=== PATIENT | female | born 1965 | race African-American/Black ===

== ENCOUNTER 2016-10-26 12:33 | Emergency (ER) | payer OTHER ==
[~2016-10-26] VITALS: Ht 170.2 cm; Wt 80.0 kg
[~2016-10-26 12:33] MED LIST: ASPI1TAB7 PO; FAMO-136 PO
[2016-10-26 17:32] LABS: BASOPHILS % (AUTO) 0.5 % (0.0-2.0); EOSINOPHILS % (AUTO) 3.8 % (1.0-6.0); HEMATOCRIT 38.2 % (36-46); HEMOGLOBIN 12.6 g/dL (12.0-16.0); LYMPHOCYTES # (AUTO) 3.1 K/uL (1.0-4.8); LYMPHOCYTES % (AUTO) 34.9 % (22.0-44.0); MEAN CORPUSCULAR HGB CONC 33.1 G/dL (31.0-37.0); MEAN CORPUSCULAR VOLUME 91 fL (80-100); MONOCYTES # (AUTO) 0.5 K/uL (0.1-1.0); MONOCYTES % (AUTO) 6.1 % (2.0-9.0); NEUTROPHILS # (AUTO) 4.9 K/uL (1.8-7.7); NEUTROPHILS % (AUTO) 54.7 % (40.0-70.0); PLATELET COUNT (AUTO) 324 K/uL (150-450); RED BLOOD CELL COUNT(AUTO) 4.21 MIL/uL (4.00-5.20); RED CELL DISTRIBUTION WIDTH 12.2 % (11.5-14.5); WHITE BLOOD COUNT (AUTO) 8.9 K/uL (4.5-11.0)
[2016-10-26 17:51] LABS: ANION GAP 6 mmol/L (8-16); CALCIUM, TOTAL 8.9 mg/dL (8.8-10.5); CARBON DIOXIDE 30 mmol/L (22-29); CHLORIDE 104 mmol/L (98-107); GLOMERULAR FILTR. RATE CALC > 60 mL/min (>60); POTASSIUM 4.3 mmol/L (3.5-5.1); SODIUM SERUM 140 mmol/L (136-145); UREA NITROGEN, BLOOD 15 mg/dL (7-18)
[2016-10-26 17:56] LABS: ALANINE AMINOTRANSFERASE 28 U/L (12-78); ALBUMIN 3.8 g/dL (3.4-5.0); ASPARTATE AMINOTRANSFERASE 15 U/L (15-37); BILIRUBIN,TOTAL 0.3 mg/dL (0.1-1.0); TOTAL PROTEIN, SERUM 7.2 g/dL (6.4-8.2)
[2016-10-26 18:03] VITALS: BP 137/82
== END 2016-10-26 18:15 | disposition left against medical advice (07) ==
LOC: EMS 12:35
DX: R42 Dizziness and giddiness (principal); R20.0 Anesthesia of skin; F17.200 Nicotine dependence, unspecified, uncomplicated
CPT/HCPCS: 93005; 99285

== ENCOUNTER 2017-03-17 17:18 | Emergency (ER) | payer OTHER ==
[~2017-03-17] VITALS: Ht 165.1 cm; Wt 68.1 kg
[2017-03-17] MEDS ORDERED: TRAM50TA4 PO (17:33)
[2017-03-17 18:44] VITALS: BP 132/84
[2017-03-17] MEDS ORDERED: IBUPROFEN 800 MG TABLET PO ONE (18:45)
[2017-03-17] MEDS ORDERED: PERTUSS(ACELL),DIPH,TET VAC/PF 0.5 ML VIAL IM ONE (18:45)
== END 2017-03-17 19:36 | disposition home or self-care (01) ==
LOC: EMS 17:27
DX: S61.431A Puncture wound without foreign body of right hand, initial encounter (principal); K21.9 Gastro-esophageal reflux disease without esophagitis; G43.909 Migraine, unspecified, not intractable, without status migrainosus; F17.210 Nicotine dependence, cigarettes, uncomplicated; W54.0XXA Bitten by dog, initial encounter; Y93.89 Activity, other specified; Y92.89 Other specified places as the place of occurrence of the external cause; Y99.8 Other external cause status
CPT/HCPCS: 90471; 90715; 99284

== ENCOUNTER 2017-07-27 13:18 | Emergency (ER) | payer OTHER ==
[~2017-07-27] VITALS: Ht 160 cm; Wt 71.0 kg
[~2017-07-27 13:18] MED LIST changes: +TRAM50TA4 PO
[2017-07-27] MEDS ORDERED: IBUPROFEN 800 MG TABLET PO ONE (14:00)
[2017-07-27 15:01] VITALS: BP 130/94
== END 2017-07-27 15:45 | disposition home or self-care (01) ==
LOC: EMS 13:19
DX: S50.11XA Contusion of right forearm, initial encounter (principal); S60.052A Contusion of left little finger without damage to nail, initial encounter; R03.0 Elevated blood-pressure reading, without diagnosis of hypertension; K21.9 Gastro-esophageal reflux disease without esophagitis; G43.909 Migraine, unspecified, not intractable, without status migrainosus; F17.210 Nicotine dependence, cigarettes, uncomplicated; W19.XXXA Unspecified fall, initial encounter; Y93.89 Activity, other specified; Y92.89 Other specified places as the place of occurrence of the external cause; Y99.8 Other external cause status
CPT/HCPCS: 99284

== ENCOUNTER 2017-09-07 16:19 | Emergency (ER) | payer OTHER ==
[~2017-09-07] VITALS: Ht 165.1 cm; Wt 56.8 kg
[2017-09-07 16:30] VITALS: BP 0/0
== END 2017-09-07 16:37 | disposition left against medical advice (07) ==
LOC: EMS 16:20
DX: R10.9 Unspecified abdominal pain (principal); Z53.21 Procedure and treatment not carried out due to patient leaving prior to being seen by health care provider

== ENCOUNTER 2017-09-09 07:42 | Emergency (ER) | payer OTHER ==
[~2017-09-09] VITALS: Ht 165.1 cm; Wt 63.5 kg
[2017-09-09 11:28] VITALS: BP 122/95
== END 2017-09-09 11:47 | disposition home or self-care (01) ==
LOC: EMS 07:43
DX: S63.501A Unspecified sprain of right wrist, initial encounter (principal); S16.1XXA Strain of muscle, fascia and tendon at neck level, initial encounter; S30.1XXA Contusion of abdominal wall, initial encounter; K21.9 Gastro-esophageal reflux disease without esophagitis; F17.200 Nicotine dependence, unspecified, uncomplicated; W01.0XXA Fall on same level from slipping, tripping and stumbling without subsequent striking against object, initial encounter; Y93.89 Activity, other specified; Y92.89 Other specified places as the place of occurrence of the external cause; Y99.8 Other external cause status
CPT/HCPCS: 99283

== ENCOUNTER 2017-11-22 11:46 | Emergency (ER) | payer OTHER ==
[~2017-11-22] VITALS: Ht 165.1 cm; Wt 68.2 kg
[~2017-11-22 11:46] MED LIST changes: -FAMO-136 PO
[2017-11-22] MEDS ORDERED: PROPARACAINE/FLUORESCEIN SOD 0.5-0.25% 0.5 ML OPHTHALMIC SOLUTION OU ONE (12:30)
[2017-11-22 13:30] VITALS: BP 135/68
== END 2017-11-22 13:37 | disposition home or self-care (01) ==
LOC: EMS 11:47
DX: H53.8 Other visual disturbances (principal); M54.2 Cervicalgia; K21.9 Gastro-esophageal reflux disease without esophagitis; G43.909 Migraine, unspecified, not intractable, without status migrainosus; F17.210 Nicotine dependence, cigarettes, uncomplicated
CPT/HCPCS: 99283; Z7610

== ENCOUNTER 2018-11-15 00:08 | Emergency (ER) | payer SELFPAY ==
[~2018-11-15] VITALS: Ht 165.1 cm; Wt 68.6 kg
[2018-11-15] MEDS ORDERED: KETOROLAC TROMETHAMINE 60 MG/2 ML VIAL IM ONE (02:30)
[2018-11-15] MEDS ORDERED: CARISOPRODOL 350 MG TABLET PO ONE (02:30)
[2018-11-15 04:50] VITALS: BP 118/73
== END 2018-11-15 04:59 | disposition home or self-care (01) ==
LOC: EMS 00:09
DX: S13.4XXA Sprain of ligaments of cervical spine, initial encounter (principal); S60.211A Contusion of right wrist, initial encounter; M54.5 Low back pain; K21.9 Gastro-esophageal reflux disease without esophagitis; F17.210 Nicotine dependence, cigarettes, uncomplicated; V43.62XA Car passenger injured in collision with other type car in traffic accident, initial encounter; Y93.89 Activity, other specified; Y92.89 Other specified places as the place of occurrence of the external cause; Y99.8 Other external cause status
CPT/HCPCS: 72040; 72100; 96372; 99283; J1885

== ENCOUNTER 2018-12-14 15:05 | Inpatient (IN) | payer OTHER ==
[~2018-12-14] VITALS: Ht 162.6 cm; Wt 77.3 kg
[~2018-12-14 15:05] MED LIST changes: -TRAM50TA4 PO
[2018-12-14] MEDS ORDERED: MORPHINE SULFATE 4 MG/ML SYRINGE IVP ONE ×2 (15:45→17:30)
[2018-12-14] MEDS ORDERED: ONDANSETRON HCL 4 MG/2 ML VIAL IVP ONE (15:45)
[2018-12-14 16:11] LABS: BILIRUBIN,URINE NEGATIVE (NEGATIVE); GLUCOSE, URINE (UA) 100 mg/dL (NEGATIVE); KETONES,URINE NEGATIVE (NEGATIVE); NITRATE,URINE NEGATIVE (NEGATIVE); PH,URINE 5.5 (5.0-8.0); PROTEIN,URINE NEGATIVE (NEGATIVE)
[2018-12-14 16:33] LABS: EOSINOPHILS % (AUTO) 1.2 % (1.0-6.0); HEMATOCRIT 29.1 % (36-46); HEMOGLOBIN 9.8 g/dL (12.0-16.0); LYMPHOCYTES # (AUTO) 2.4 K/uL (1.0-4.8); MEAN CORPUSCULAR HGB CONC 33.8 G/dL (31.0-37.0); MEAN CORPUSCULAR VOLUME 89 fL (80-100); MONOCYTES # (AUTO) 0.5 K/uL (0.1-1.0); MONOCYTES % (AUTO) 3.9 % (2.0-9.0); NEUTROPHILS % (AUTO) 75.9 % (40.0-70.0); PLATELET COUNT (AUTO) 317 K/uL (150-450); RED BLOOD CELL COUNT(AUTO) 3.27 MIL/uL (4.00-5.20); RED CELL DISTRIBUTION WIDTH 13.1 % (11.5-14.5)
[2018-12-14 16:36] LABS: APPEARANCE,URINE HAZY (CLEAR); LEUKOCYTE ESTERASE ,URINE SMALL (NEGATIVE); OCCULT BLOOD,URINE TRACE (NEGATIVE)
[2018-12-14 16:37] LABS: BACTERIA,URINE None Seen /HPF (None Seen); RBC,URINE 0-2 /HPF (0-2); SQUAMOUS EPITHELIAL CELL,UR Few /LPF (None Seen)
[2018-12-14 16:37] LABS: ANION GAP 10 mmol/L (8-16); CALCIUM, TOTAL 9.2 mg/dL (8.8-10.5); CARBON DIOXIDE 26 mmol/L (22-29); CHLORIDE 105 mmol/L (98-107); CREATININE 0.75 mg/dL (0.60-1.30); GLOMERULAR FILTR. RATE CALC > 60 mL/min (>60); GLUCOSE,RANDOM 102 mg/dL (70-110); POTASSIUM 3.7 mmol/L (3.5-5.1); SODIUM SERUM 141 mmol/L (136-145); UREA NITROGEN, BLOOD 11 mg/dL (7-18)
[2018-12-14 16:43] LABS: ALANINE AMINOTRANSFERASE 17 U/L (12-78); ALBUMIN 3.7 g/dL (3.4-5.0); ALKALINE PHOSPHATASE 112 U/L (46-116); ASPARTATE AMINOTRANSFERASE 13 U/L (15-37); BILIRUBIN,TOTAL 0.2 mg/dL (0.1-1.0); LIPASE 189 U/L (73-393); TOTAL PROTEIN, SERUM 6.7 g/dL (6.4-8.2)
[2018-12-14 16:55] LABS: AMPHET/METH SCREEN,URINE POSITIVE (NEGATIVE); BARBITURATE SCREEN, URINE NEGATIVE (NEGATIVE); BENZODIAZEPINES SCREEN,URINE NEGATIVE (NEGATIVE); CANNABINOID SCREEN,URINE NEGATIVE (NEGATIVE); COCAINE SCREEN,URINE NEGATIVE (NEGATIVE); METHADONE SCREEN, URINE NEGATIVE (NEGATIVE); OPIATE SCREEN,URINE NEGATIVE (NEGATIVE); PHENCYCLIDINE SCREEN,URINE NEGATIVE (NEGATIVE)
[2018-12-14] MEDS ORDERED: CYCLOBENZAPRINE HCL 10 MG TABLET PO ONE (18:00)
[2018-12-14] MEDS ORDERED: SODIUM CHLORIDE 0.9% 1,000 ML IV ONE ×2 (20:00→20:45)
[2018-12-14] MEDS ORDERED: ACETAMINOPHEN 325 MG TABLET PO PRN (20:45)
[2018-12-14] MEDS ORDERED: ONDANSETRON HCL 4 MG/2 ML VIAL IVP PRN (20:45)
[2018-12-14] MEDS ORDERED: PIPERACILLIN/TAZO 3.375 GM/D5W 50 ML IV ONE (21:00)
[2018-12-14] MEDS ORDERED: BARIUM SULFATE 0.1% SUSPENSION 450 ML BOTTLE PO ONE (21:00)
[2018-12-14] MEDS: DOCUSATE SODIUM 100 MG CAPSULE PO SCH (21:00)
[2018-12-14] MEDS: PANTOPRAZOLE SODIUM 40 MG/VIAL IVP SCH (21:10)
[2018-12-14] MEDS ORDERED: IOVERSOL 350 MG/ML 100 ML VIAL ONE (21:13)
[2018-12-14] MEDS ORDERED: SODIUM CHLORIDE 0.9% 100 ML ONE (21:13)
[2018-12-14] MEDS ORDERED: IOVERSOL 320 MG/ML 100 ML VIAL ONE (21:21)
[2018-12-14] MEDS: HYDROCODONE/ACETAMINOPHEN 5-325 MG TABLET PO PRN (23:11)
[2018-12-15] VITALS: BP 107/86
[2018-12-15] MEDS: MORPHINE SULFATE 2 MG/ML SYRINGE IVP PRN (03:07)
[2018-12-15 04:00] VITALS: BP 122/75
[2018-12-15 06:16] LABS: BASOPHILS % (AUTO) 0.8 % (0.0-2.0); EOSINOPHILS % (AUTO) 2.1 % (1.0-6.0); HEMATOCRIT 24.3 % (36-46); HEMOGLOBIN 8.2 g/dL (12.0-16.0); LYMPHOCYTES # (AUTO) 2.4 K/uL (1.0-4.8); LYMPHOCYTES % (AUTO) 24.2 % (22.0-44.0); MEAN CORPUSCULAR HEMOGLOBIN 30.3 pg (26.0-34.0); MEAN CORPUSCULAR VOLUME 89 fL (80-100); MONOCYTES # (AUTO) 0.6 K/uL (0.1-1.0); MONOCYTES % (AUTO) 5.9 % (2.0-9.0); NEUTROPHILS # (AUTO) 6.7 K/uL (1.8-7.7); PLATELET COUNT (AUTO) 261 K/uL (150-450); RED BLOOD CELL COUNT(AUTO) 2.72 MIL/uL (4.00-5.20); RED CELL DISTRIBUTION WIDTH 13.4 % (11.5-14.5)
[2018-12-15 08:06] VITALS: BP 117/63
[2018-12-15] MEDS: PANTOPRAZOLE SODIUM 40 MG/VIAL IVP SCH (08:21)
[2018-12-15] MEDS: HYDROCODONE/ACETAMINOPHEN 5-325 MG TABLET PO PRN (08:21)
[2018-12-15] MEDS: DOCUSATE SODIUM 100 MG CAPSULE PO SCH ×2 (08:43→21:00)
[2018-12-15 10:34] LABS: PROTHROMBIN TIME 10.7 SEC (9.4-11.6)
[2018-12-15] MEDS ORDERED: RINGERS SOLUTION,LACTATED 1,000 ML IV ONE ×2 (11:00→13:53)
[2018-12-15] MEDS ORDERED: FentaNYL CITRATE-PF 100 MCG/2 ML VIAL IVP ONE (12:00)
[2018-12-15 12:05] LABS: GLUCOMETER DEV NAME(LOC) SDS.; GLUCOSE,POINT OF CARE 90 MG/DL (70-110)
[2018-12-15] MEDS ORDERED: SODIUM CL IRRIG SOLN BAG 0 ML IRRIG ONE (12:27)
[2018-12-15] MEDS ORDERED: BUPIVACAINE HCL/PF 0.5% 30 ML VIAL ONE (12:27)
[2018-12-15] MEDS ORDERED: LIDOCAINE 2%/EPI 1:200,000/PF 20 ML VIAL ONE (12:27)
[2018-12-15] MEDS ORDERED: CefoTEtan DISOD 2 GM/DEXTROSE 50 ML IV ONE (13:07)
[2018-12-15] MEDS ORDERED: SUGAMMADEX SODIUM 200 MG/2 ML VIAL IVP ONE (14:03)
[2018-12-15] MEDS ORDERED: HYDROmorphone 2 MG/ML SYRINGE ONE (14:12)
[2018-12-15] MEDS ORDERED: HYDROCODONE/ACETAMINOPHEN 5-325 MG TABLET PO PRN (14:15)
[2018-12-15] MEDS ORDERED: ACETAMINOPHEN 500 MG TABLET PO PRN (14:15)
[2018-12-15] MEDS ORDERED: HYDROmorphone 2 MG/ML SYRINGE IM STA (14:15)
[2018-12-15] MEDS ORDERED: MORPHINE SULFATE 2 MG/ML SYRINGE IVP PRN (14:15)
[2018-12-15] MEDS ORDERED: FentaNYL CITRATE-PF 100 MCG/2 ML VIAL ONE (14:17)
[2018-12-15] MEDS ORDERED: ACETAMINOPHEN 1000 MG/ISO-OSM 100 ML IV ONE (14:19)
[2018-12-15] MEDS ORDERED: KETOROLAC TROMETHAMINE 30 MG/ML VIAL ONE (14:20)
[2018-12-15] MEDS ORDERED: ACETAMINOPHEN 1000 MG/ISO-OSM 100 ML IV STA (14:20)
[2018-12-15] MEDS ORDERED: KETOROLAC TROMETHAMINE 30 MG/ML VIAL IVP STA (14:21)
[2018-12-15 14:46] LABS: ABG A-A DIFF O2 171.9 mmHg (10-20.0); ABG BASE EXCESS 1.8 mmol/L (-2.0-3.0); ABG CARBOXYHEMOGLOBIN 0.8 % (0.0-1.5); ABG HCO3 25.5 mmol/L (22.0-26.0); ABG METHEMOGLOBIN 0.3 % (0.0-1.5); ABG OXYGEN CONTENT 11.6 mL/dL (15.0-23.0); ABG OXYGEN SATURATION 94.7 % (95.0-98.0); ABG OXYHEMOGLOBIN 93.7 % (94.0-100.0); ABG PCO2 58 mmHg (35-45); ABG PH 7.303 (7.35-7.450); ABG TOTAL HEMOGLOBIN 8.7 G/dL (12.0-18.0); PO2, ARTERIAL BG 83.3 mmHg (84.0-92.0); SITE, BLOOD GAS RT RADIAL; SOURCE, BLOOD GAS ARTERIAL; TEMPERATURE, FAHRENHEIT, BG 97.9 FAHREN (96.0-98.6)
[2018-12-15] MEDS ORDERED: FentaNYL CITRATE-PF 100 MCG/2 ML VIAL IVP STA (14:46)
[2018-12-15 14:47] LABS: O2 DEVICE,BLOOD GAS CANNULA (ROOM AIR)
[2018-12-15 16:23] LABS: EOSINOPHILS % (AUTO) 0.4 % (1.0-6.0); HEMATOCRIT 23.3 % (36-46); HEMOGLOBIN 8.1 g/dL (12.0-16.0); LYMPHOCYTES # (AUTO) 0.9 K/uL (1.0-4.8); MEAN CORPUSCULAR HEMOGLOBIN 30.9 pg (26.0-34.0); MEAN CORPUSCULAR HGB CONC 34.7 G/dL (31.0-37.0); MEAN CORPUSCULAR VOLUME 89 fL (80-100); MONOCYTES # (AUTO) 0.2 K/uL (0.1-1.0); MONOCYTES % (AUTO) 1.5 % (2.0-9.0); NEUTROPHILS # (AUTO) 11.4 K/uL (1.8-7.7); PLATELET COUNT (AUTO) 255 K/uL (150-450); RED BLOOD CELL COUNT(AUTO) 2.62 MIL/uL (4.00-5.20); RED CELL DISTRIBUTION WIDTH 13.3 % (11.5-14.5)
[2018-12-15 16:29] LABS: NEUTROPHILS % (AUTO) 91.1 % (40.0-70.0)
[2018-12-15 17:29] VITALS: BP 115/70
[2018-12-15 20:30] VITALS: BP 103/57
[2018-12-16 00:14] VITALS: BP 110/51
[2018-12-16 05:21] VITALS: BP 103/67
[2018-12-16 06:21] LABS: BASOPHILS % (AUTO) 0.6 % (0.0-2.0); EOSINOPHILS % (AUTO) 0.1 % (1.0-6.0); HEMATOCRIT 23.8 % (36-46); LYMPHOCYTES # (AUTO) 1.7 K/uL (1.0-4.8); MEAN CORPUSCULAR HEMOGLOBIN 30.2 pg (26.0-34.0); MEAN CORPUSCULAR HGB CONC 33.6 G/dL (31.0-37.0); MEAN CORPUSCULAR VOLUME 90 fL (80-100); MONOCYTES # (AUTO) 0.5 K/uL (0.1-1.0); MONOCYTES % (AUTO) 4.7 % (2.0-9.0); NEUTROPHILS # (AUTO) 7.6 K/uL (1.8-7.7); NEUTROPHILS % (AUTO) 77.6 % (40.0-70.0); PLATELET COUNT (AUTO) 286 K/uL (150-450); RED BLOOD CELL COUNT(AUTO) 2.65 MIL/uL (4.00-5.20); RED CELL DISTRIBUTION WIDTH 13.4 % (11.5-14.5)
[2018-12-16 07:25] VITALS: BP 112/65
[2018-12-16] MEDS: PANTOPRAZOLE SODIUM 40 MG/VIAL IVP SCH (08:20)
[2018-12-16] MEDS: HYDROCODONE/ACETAMINOPHEN 5-325 MG TABLET PO PRN (08:20)
[2018-12-16] MEDS: DOCUSATE SODIUM 100 MG CAPSULE PO SCH ×2 (08:21→20:13)
[2018-12-16 11:29] VITALS: BP 145/84
[2018-12-16 15:00] VITALS: BP 140/80
[2018-12-16 19:26] VITALS: BP 107/58
[2018-12-17 00:10] VITALS: BP 109/69
[2018-12-17] MEDS: MORPHINE SULFATE 2 MG/ML SYRINGE IVP PRN (03:03)
[2018-12-17 04:32] VITALS: BP 112/79
[2018-12-17 06:37] LABS: BASOPHILS % (AUTO) 0.3 % (0.0-2.0); EOSINOPHILS % (AUTO) 3.8 % (1.0-6.0); HEMATOCRIT 24.2 % (36-46); HEMOGLOBIN 8.4 g/dL (12.0-16.0); LYMPHOCYTES # (AUTO) 3.9 K/uL (1.0-4.8); LYMPHOCYTES % (AUTO) 39.6 % (22.0-44.0); MEAN CORPUSCULAR HGB CONC 34.7 G/dL (31.0-37.0); MEAN CORPUSCULAR VOLUME 89 fL (80-100); MONOCYTES # (AUTO) 0.6 K/uL (0.1-1.0); MONOCYTES % (AUTO) 6.3 % (2.0-9.0); PLATELET COUNT (AUTO) 301 K/uL (150-450); RED BLOOD CELL COUNT(AUTO) 2.71 MIL/uL (4.00-5.20); RED CELL DISTRIBUTION WIDTH 13.5 % (11.5-14.5)
[2018-12-17 07:00] LABS: ANION GAP 6 mmol/L (8-16); CARBON DIOXIDE 30 mmol/L (22-29); CHLORIDE 105 mmol/L (98-107); CREATININE 0.72 mg/dL (0.60-1.30); GLOMERULAR FILTR. RATE CALC > 60 mL/min (>60); GLUCOSE,RANDOM 97 mg/dL (70-110); POTASSIUM 3.9 mmol/L (3.5-5.1); SODIUM SERUM 141 mmol/L (136-145); UREA NITROGEN, BLOOD 10 mg/dL (7-18)
[2018-12-17 07:45] VITALS: BP 117/76
[2018-12-17] MEDS: DOCUSATE SODIUM 100 MG CAPSULE PO SCH (07:57)
[2018-12-17] MEDS: PANTOPRAZOLE SODIUM 40 MG/VIAL IVP SCH (07:57)
[2018-12-17] MEDS ORDERED: FERR-89 PO (10:18)
[2018-12-17 11:44] VITALS: BP 112/79
== END 2018-12-17 12:20 | disposition home or self-care (01) | DRG 229 ==
LOC: EMS 15:06 → 4E 20:59 → 5N 12-16 17:05
PROVIDERS: ADMIT Internal Medicine; ATTEND Internal Medicine
PROC: 0W3G4ZZ Control Bleeding in Peritoneal Cavity, Percutaneous Endoscopic Approach (ICD-10-PCS; principal; 2018-12-15 12:00)
DX: K66.1 Hemoperitoneum (principal); R65.10 Systemic inflammatory response syndrome (SIRS) of non-infectious origin without acute organ dysfunction; F15.10 Other stimulant abuse, uncomplicated; D50.0 Iron deficiency anemia secondary to blood loss (chronic); D64.9 Anemia, unspecified; E11.9 Type 2 diabetes mellitus without complications; F17.200 Nicotine dependence, unspecified, uncomplicated; I10 Essential (primary) hypertension; K21.9 Gastro-esophageal reflux disease without esophagitis; Z98.1 Arthrodesis status; Z98.51 Tubal ligation status
CPT/HCPCS: 36600; 74176; 74177; 76700; 76856; 82805; 86850; 86900; 86901; 86920; 87040; 87081; 93005; 93306; 96374; 96375; 96376; C9113; G0378; J0131; J1170; J1885; J2270; J2405; J2543; J3010; J3490; J7030; J7050; J7120

== ENCOUNTER 2019-03-25 16:26 | Emergency (ER) | payer OTHER ==
[~2019-03-25] VITALS: Ht 165.1 cm; Wt 70.0 kg
[~2019-03-25 16:26] MED LIST changes: -ASPI1TAB7 PO; +FERR-89 PO
[2019-03-25 16:31] VITALS: BP 130/90
== END 2019-03-25 16:42 | disposition left against medical advice (07) ==
LOC: EMS 16:27
DX: R03.0 Elevated blood-pressure reading, without diagnosis of hypertension (principal); K21.9 Gastro-esophageal reflux disease without esophagitis; G43.909 Migraine, unspecified, not intractable, without status migrainosus; F17.210 Nicotine dependence, cigarettes, uncomplicated; Z53.21 Procedure and treatment not carried out due to patient leaving prior to being seen by health care provider

== ENCOUNTER 2020-01-04 10:39 | Emergency (ER) | payer OTHER ==
[~2020-01-04] VITALS: Ht 165.1 cm; Wt 73.3 kg
[2020-01-04] MEDS ORDERED: IOVERSOL 350 MG/ML 100 ML VIAL ONE (10:54)
[2020-01-04] MEDS ORDERED: SODIUM CHLORIDE 0.9% 100 ML ONE (10:54)
[2020-01-04 10:57] LABS: BASOPHILS % (AUTO) 1.1 % (0.0-2.0); EOSINOPHILS % (AUTO) 3.2 % (1.0-6.0); HEMOGLOBIN 13.1 g/dL (12.0-16.0); LYMPHOCYTES # (AUTO) 2.9 K/uL (1.0-4.8); LYMPHOCYTES % (AUTO) 41.1 % (22.0-44.0); MEAN CORPUSCULAR HEMOGLOBIN 30.5 pg (26.0-34.0); MEAN CORPUSCULAR HGB CONC 33.7 G/dL (31.0-37.0); MEAN CORPUSCULAR VOLUME 91 fL (80-100); MONOCYTES # (AUTO) 0.5 K/uL (0.1-1.0); MONOCYTES % (AUTO) 7.3 % (2.0-9.0); NEUTROPHILS # (AUTO) 3.3 K/uL (1.8-7.7); NEUTROPHILS % (AUTO) 47.3 % (40.0-70.0); PLATELET COUNT (AUTO) 348 K/uL (150-450); RED BLOOD CELL COUNT(AUTO) 4.31 MIL/uL (4.00-5.20); RED CELL DISTRIBUTION WIDTH 12.6 % (11.5-14.5)
[2020-01-04 11:11] LABS: PROTHROMBIN TIME 10.7 SEC (9.4-11.6)
[2020-01-04] MEDS ORDERED: ASPIRIN 81 MG CHEWABLE TABLET PO ONE (11:15)
[2020-01-04 11:25] LABS: ANION GAP 9 mmol/L (8-16); CALCIUM, TOTAL 9.5 mg/dL (8.8-10.5); CARBON DIOXIDE 28 mmol/L (22-29); CHLORIDE 104 mmol/L (98-107); CREATININE 0.79 mg/dL (0.60-1.30); GLOMERULAR FILTR. RATE CALC > 60 mL/min (>60); GLUCOSE,RANDOM 100 mg/dL (70-110); POTASSIUM 3.4 mmol/L (3.5-5.1); SODIUM SERUM 141 mmol/L (136-145); UREA NITROGEN, BLOOD 7 mg/dL (7-18)
[2020-01-04 11:32] LABS: ALANINE AMINOTRANSFERASE 26 U/L (12-78); ALBUMIN 4.1 g/dL (3.4-5.0); ALKALINE PHOSPHATASE 143 U/L (46-116); ASPARTATE AMINOTRANSFERASE 18 U/L (15-37); BILIRUBIN,TOTAL 0.5 mg/dL (0.1-1.0); TOTAL PROTEIN, SERUM 7.4 g/dL (6.4-8.2)
[2020-01-04] MEDS ORDERED: SODIUM CHLORIDE 0.9% 1,000 ML IV ONE (12:30)
[2020-01-04] MEDS ORDERED: ACETAMINOPHEN 500 MG TABLET PO ONE (12:45)
[2020-01-04 13:08] LABS: AMPHET/METH SCREEN,URINE POSITIVE (NEGATIVE); BARBITURATE SCREEN, URINE NEGATIVE (NEGATIVE); BENZODIAZEPINES SCREEN,URINE NEGATIVE (NEGATIVE); CANNABINOID SCREEN,URINE NEGATIVE (NEGATIVE); COCAINE SCREEN,URINE NEGATIVE (NEGATIVE); METHADONE SCREEN, URINE NEGATIVE (NEGATIVE); OPIATE SCREEN,URINE NEGATIVE (NEGATIVE)
[2020-01-04 13:10] LABS: APPEARANCE,URINE CLEAR (CLEAR); BILIRUBIN,URINE NEGATIVE (NEGATIVE); GLUCOSE, URINE (UA) NEGATIVE (NEGATIVE); KETONES,URINE NEGATIVE (NEGATIVE); LEUKOCYTE ESTERASE ,URINE TRACE (NEGATIVE); NITRATE,URINE NEGATIVE (NEGATIVE); OCCULT BLOOD,URINE NEGATIVE (NEGATIVE); PROTEIN,URINE NEGATIVE (NEGATIVE); UROBILINOGEN,URINE 0.2 mg/dL (<=1.0)
[2020-01-04 13:11] LABS: PHENCYCLIDINE SCREEN,URINE NEGATIVE (NEGATIVE)
[2020-01-04 13:13] VITALS: BP 150/90
[2020-01-04 13:56] LABS: BACTERIA,URINE None Seen /HPF (None Seen); RBC,URINE None Seen /HPF (0-2); SQUAMOUS EPITHELIAL CELL,UR Few /LPF (None Seen); WBC,URINE 0-2 /HPF (0-5)
== END 2020-01-04 13:22 | disposition left against medical advice (07) ==
LOC: EMS 10:46
DX: G45.9 Transient cerebral ischemic attack, unspecified (principal); F17.210 Nicotine dependence, cigarettes, uncomplicated; K21.9 Gastro-esophageal reflux disease without esophagitis; G43.909 Migraine, unspecified, not intractable, without status migrainosus
CPT/HCPCS: 36415; 70450; 70496; 71045; 80053; 80307; 81001; 84484; 85025; 85610; 85730; 86850; 86900; 86901; 93005; 99285; 99406; J7030; J7050; Q9967

== ENCOUNTER 2020-03-26 22:08 | Emergency (ER) | payer OTHER ==
[~2020-03-26] VITALS: Ht 165.1 cm; Wt 71.8 kg
[2020-03-26] MEDS ORDERED: ASPI-1192 PO (22:19)
[2020-03-26] MEDS ORDERED: KETOROLAC TROMETHAMINE 60 MG/2 ML VIAL IM ONE (23:30)
[2020-03-26] MEDS ORDERED: HYDROCODONE/ACETAMINOPHEN 5-325 MG TABLET PO ONE (23:30)
[2020-03-27 00:46] VITALS: BP 118/82
== END 2020-03-27 01:35 | disposition home or self-care (01) ==
LOC: EMS 22:08
DX: M25.531 Pain in right wrist (principal); K21.9 Gastro-esophageal reflux disease without esophagitis; F17.210 Nicotine dependence, cigarettes, uncomplicated; Z79.899 Other long term (current) drug therapy
CPT/HCPCS: 29125; 73110; 96372; 99283; 99406; J1885

== ENCOUNTER 2022-03-12 20:49 | Emergency (ER) | payer OTHER ==
[~2022-03-12] VITALS: Ht 165.1 cm; Wt 67.7 kg
[~2022-03-12 20:49] MED LIST changes: +ASPI-1192 PO; -FERR-89 PO; +FERR325T27 PO
[2022-03-12] MEDS ORDERED: IBUP-2071 PO (21:11)
[2022-03-12] MEDS ORDERED: TRAZ-252 PO (21:11)
[2022-03-12] MEDS ORDERED: HYDR-4072 PO (21:11)
[2022-03-12] MEDS ORDERED: CALC-795 PO (21:11)
[2022-03-12] MEDS ORDERED: KETOROLAC TROMETHAMINE 60 MG/2 ML VIAL IM ONE (21:45)
[2022-03-12] MEDS ORDERED: METHOCARBAMOL 500 MG TABLET PO ONE (21:45)
[2022-03-12] MEDS ORDERED: GABAPENTIN 300 MG CAPSULE PO ONE (21:45)
[2022-03-12] MEDS ORDERED: NAPR-1025 PO (22:00)
[2022-03-12] MEDS ORDERED: GABA-1181 PO (22:00)
[2022-03-12] MEDS ORDERED: CYCL-448 PO (22:00)
[2022-03-12 22:20] VITALS: BP 123/69
== END 2022-03-12 23:21 | disposition home or self-care (01) ==
LOC: EMS 20:53
DX: M54.50 Low back pain, unspecified (principal); G43.909 Migraine, unspecified, not intractable, without status migrainosus; F17.210 Nicotine dependence, cigarettes, uncomplicated; Z87.19 Personal history of other diseases of the digestive system; Z98.890 Other specified postprocedural states
CPT/HCPCS: 99283; 96372; J1885

== ENCOUNTER 2023-04-05 12:30 | Emergency (ER) | payer OTHER ==
[~2023-04-05] VITALS: Ht 165.1 cm; Wt 71.8 kg
[~2023-04-05 12:30] MED LIST changes: +CALC-795 PO; +CYCL-448 PO; +GABA-1181 PO; +HYDR-4072 PO; +IBUP-1493 PO; +NAPR-1025 PO; +TRAZ-252 PO
[2023-04-05 12:32] VITALS: TEMP 98
[2023-04-05] MEDS ORDERED: CARI-493 PO (13:56)
[2023-04-05] MEDS ORDERED: GABA-1181 PO (13:56)
[2023-04-05] MEDS ORDERED: HYDR-4069 PO (13:56)
[2023-04-05] MEDS ORDERED: AZEL137S8 NASAL (13:56)
[2023-04-05] MEDS ORDERED: LINA145C PO (13:56)
[2023-04-05] MEDS ORDERED: DICL2100G TP (13:56)
[2023-04-05] MEDS ORDERED: DULO-113 PO (13:56)
[2023-04-05] MEDS ORDERED: ATOR40TA71 PO (13:56)
[2023-04-05] MEDS ORDERED: CETI10TA58 PO (13:56)
[2023-04-05] MEDS ORDERED: FLUT16H NASAL (13:56)
[2023-04-05] MEDS ORDERED: CYCL10TA16 PO (13:56)
[2023-04-05] MEDS ORDERED: IBUPROFEN 600 MG TABLET PO ONE (14:00)
[2023-04-05] MEDS ORDERED: HYDROCODONE/ACETAMINOPHEN 5-325 MG TABLET PO ONE (14:30)
[2023-04-05] MEDS ORDERED: HYDR-4072 PO (15:17)
[2023-04-05 15:30] VITALS: BP 126/77; PULSE 88; RESP 16
== END 2023-04-05 16:01 | disposition home or self-care (01) ==
LOC: EMS 12:34
DX: S60.211A Contusion of right wrist, initial encounter (principal); S50.01XA Contusion of right elbow, initial encounter; G43.909 Migraine, unspecified, not intractable, without status migrainosus; F17.210 Nicotine dependence, cigarettes, uncomplicated; Z98.890 Other specified postprocedural states; X58.XXXA Exposure to other specified factors, initial encounter; Y93.89 Activity, other specified; Y92.89 Other specified places as the place of occurrence of the external cause; Y99.8 Other external cause status
CPT/HCPCS: 99283

== ENCOUNTER 2023-06-05 20:27 | Emergency (ER) | payer OTHER ==
[~2023-06-05] VITALS: Ht 165.1 cm; Wt 70.8 kg
[~2023-06-05 20:27] MED LIST changes: -ASPI-1192 PO; +ATOR40TA71 PO; +AZEL137S8 NASAL; +CARI-493 PO; +CETI10TA58 PO; -CYCL-448 PO; +CYCL10TA16 PO; +DICL2100G TP; +DULO-113 PO; -FERR325T27 PO; +FLUT16H NASAL; +HYDR-4069 PO; -IBUP-1493 PO; +LINA145C PO; -NAPR-1025 PO
[2023-06-05 20:35] VITALS: BP 135/69; PULSE 109; RESP 16; TEMP 99.5
[2023-06-05 21:03] LABS: COVID AG,FIA SOURCE NASAL SWAB
[2023-06-05 21:29] LABS: INFLUENZA TYPE A NEGATIVE FOR TYPE A (NEGATIVE); INFLUENZA TYPE B NEGATIVE FOR TYPE B (NEGATIVE); SARS-COV2 (COVID) ANTIGEN,FIA Negative (Negative)
[2023-06-05] MEDS ORDERED: KETOROLAC TROMETHAMINE 30 MG/ML VIAL IM ONE (22:30)
[2023-06-05 23:05] LABS: ANION GAP 7 mmol/L (8-16); CALCIUM, TOTAL 9.1 mg/dL (8.8-10.5); CARBON DIOXIDE 29 mmol/L (22-29); CHLORIDE 102 mmol/L (98-107); CREATININE 0.78 mg/dL (0.60-1.30); GLOMERULAR FILTR. RATE CALC > 60 mL/min (>60); GLUCOSE,RANDOM 114 mg/dL (70-110); POTASSIUM 4.3 mmol/L (3.5-5.1); SODIUM SERUM 138 mmol/L (136-145); UREA NITROGEN, BLOOD 9 mg/dL (7-18)
[2023-06-05 23:11] LABS: ALANINE AMINOTRANSFERASE 54 U/L (12-78); ALBUMIN 3.3 g/dL (3.4-5.0); ALKALINE PHOSPHATASE 200 U/L (46-116); ASPARTATE AMINOTRANSFERASE 43 U/L (15-37); BILIRUBIN,TOTAL 0.3 mg/dL (0.1-1.0); TOTAL PROTEIN, SERUM 7.2 g/dL (6.4-8.2)
[2023-06-05 23:17] LABS: BASOPHILS % (AUTO) 0.8 % (0.0-2.0); EOSINOPHILS % (AUTO) 0.7 % (1.0-6.0); HEMATOCRIT 36.2 % (36-46); HEMOGLOBIN 12.1 g/dL (12.0-16.0); LYMPHOCYTES # (AUTO) 2.1 K/uL (1.0-4.8); LYMPHOCYTES % (AUTO) 13.9 % (22.0-44.0); MEAN CORPUSCULAR HEMOGLOBIN 30.2 pg (26.0-34.0); MEAN CORPUSCULAR HGB CONC 33.6 G/dL (31.0-37.0); MEAN CORPUSCULAR VOLUME 90 fL (80-100); MONOCYTES # (AUTO) 0.8 K/uL (0.1-1.0); MONOCYTES % (AUTO) 5.2 % (2.0-9.0); NEUTROPHILS # (AUTO) 12.1 K/uL (1.8-7.7); NEUTROPHILS % (AUTO) 79.4 % (40.0-70.0); PLATELET COUNT (AUTO) 389 K/uL (150-450); RED BLOOD CELL COUNT(AUTO) 4.03 MIL/uL (4.00-5.20); RED CELL DISTRIBUTION WIDTH 12.3 % (11.5-14.5); WHITE BLOOD COUNT (AUTO) 15.3 K/uL (4.5-11.0)
[2023-06-05 23:54] LABS: APPEARANCE,URINE CLEAR (CLEAR); BILIRUBIN,URINE NEGATIVE (NEGATIVE); COLOR,URINE LIGHT YELLOW (YELLOW); GLUCOSE, URINE (UA) NEGATIVE (NEGATIVE); KETONES,URINE NEGATIVE (NEGATIVE); LEUKOCYTE ESTERASE ,URINE SMALL (NEGATIVE); NITRATE,URINE NEGATIVE (NEGATIVE); OCCULT BLOOD,URINE NEGATIVE (NEGATIVE); PROTEIN,URINE TRACE mg/dL (NEGATIVE)
[2023-06-06 00:12] LABS: BACTERIA,URINE None Seen /HPF (None Seen); RBC,URINE None Seen /HPF (0-2); SQUAMOUS EPITHELIAL CELL,UR None Seen /LPF (None Seen)
[2023-06-06] MEDS ORDERED: CEPH-558 PO (00:55)
[2023-06-06] MEDS ORDERED: CEPHALEXIN MONOHYDRATE 500 MG CAPSULE PO ONE (01:00)
[2023-06-09] MEDS ORDERED: CEPH-558 PO (03:04)
== END 2023-06-06 01:36 | disposition home or self-care (01) ==
LOC: EMS 20:27
DX: N39.0 Urinary tract infection, site not specified (principal); G43.909 Migraine, unspecified, not intractable, without status migrainosus; F17.210 Nicotine dependence, cigarettes, uncomplicated; Z98.890 Other specified postprocedural states; Z20.822 Contact with and (suspected) exposure to COVID-19
CPT/HCPCS: 99285; 74176; 71045; 87426; 80053; 81001; 85025; 87804; 36415; 87086; 87186; 96372; J1885

== ENCOUNTER 2023-09-12 12:19 | Emergency (ER) | payer OTHER ==
[~2023-09-12] VITALS: Ht 165.1 cm; Wt 70.0 kg
[~2023-09-12 12:19] MED LIST changes: +CEPH-558 PO
[2023-09-12 12:20] VITALS: TEMP 97.9
[2023-09-12] MEDS ORDERED: AMOX1TAB16 PO (12:45)
[2023-09-12] MEDS ORDERED: BACITRACIN 0.9 GM PACKET OINTMENT TP ONE (12:45)
[2023-09-12] MEDS ORDERED: PERTUSS(ACELL),DIPH,TET VAC/PF 0.5 ML SYRINGE IM. ONE (12:45)
[2023-09-12] MEDS ORDERED: BACI28.410 TP (12:45)
[2023-09-12] MEDS ORDERED: KETOROLAC TROMETHAMINE 30 MG/ML VIAL IM ONE (12:45)
[2023-09-12] MEDS ORDERED: AMOX TR/POT CLAV 875 MG/125 MG TABLET PO ONE (12:45)
[2023-09-12 12:56] VITALS: BP 123/62; PULSE 100; RESP 16
== END 2023-09-12 13:44 | disposition home or self-care (01) ==
LOC: EMS 12:20
DX: L03.011 Cellulitis of right finger (principal); G43.909 Migraine, unspecified, not intractable, without status migrainosus; F17.210 Nicotine dependence, cigarettes, uncomplicated; Z98.890 Other specified postprocedural states
CPT/HCPCS: 99284; 90715; 90471; 96372; J1885

== ENCOUNTER 2023-10-08 08:32 | Emergency (ER) | payer OTHER ==
[~2023-10-08] VITALS: Ht 165.1 cm; Wt 68.2 kg
[~2023-10-08 08:32] MED LIST changes: +AMOX1TAB16 PO; -ATOR40TA71 PO; -AZEL137S8 NASAL; +BACI28.410 TP; -CEPH-558 PO; -CYCL10TA16 PO; -HYDR-4072 PO
[2023-10-08 08:48] VITALS: TEMP 98
[2023-10-08] MEDS ORDERED: CYCLOBENZAPRINE HCL 10 MG TABLET PO ONE (12:30)
[2023-10-08] MEDS ORDERED: ACETAMINOPHEN 500 MG TABLET PO ONE (12:30)
[2023-10-08] MEDS ORDERED: ATOR40TA71 PO (12:31)
[2023-10-08] MEDS ORDERED: DOCU-412 PO (12:31)
[2023-10-08] MEDS ORDERED: LORA10TA7 PO (12:31)
[2023-10-08] MEDS ORDERED: DICL100G60 TP (12:31)
[2023-10-08] MEDS ORDERED: AZEL137S8 NASAL (12:31)
[2023-10-08 13:03] VITALS: BP 126/70; PULSE 88; RESP 16
[2023-10-08] MEDS ORDERED: CYCL-397 PO (13:06)
== END 2023-10-08 13:19 | disposition home or self-care (01) ==
LOC: EMS 08:49
DX: M54.2 Cervicalgia (principal); G43.909 Migraine, unspecified, not intractable, without status migrainosus; F17.210 Nicotine dependence, cigarettes, uncomplicated; Z98.890 Other specified postprocedural states
CPT/HCPCS: 99283

== ENCOUNTER 2024-12-23 10:20 | Emergency (ER) | payer OTHER ==
[~2024-12-23] VITALS: Ht 166.4 cm; Wt 70.0 kg
[~2024-12-23 10:20] MED LIST changes: -AMOX1TAB16 PO; +ATOR40TA71 PO; -BACI28.410 TP; -CARI-493 PO; -CETI10TA58 PO; -DICL2100G TP; -DULO-113 PO; -FLUT16H NASAL; -GABA-1181 PO; -HYDR-4069 PO; -LINA145C PO; -TRAZ-252 PO
[2024-12-23 10:22] VITALS: TEMP 97.9
[2024-12-23 10:30] VITALS: BP 126/71; PULSE 81; RESP 17; O2SAT 99
== END 2024-12-23 10:53 | disposition home or self-care (01) ==
LOC: EMS 10:28
DX: T16.1XXA Foreign body in right ear, initial encounter (principal); F17.210 Nicotine dependence, cigarettes, uncomplicated; Z79.899 Other long term (current) drug therapy; W44.8XXA Other foreign body entering into or through a natural orifice, initial encounter; Y93.89 Activity, other specified; Y92.89 Other specified places as the place of occurrence of the external cause; Y99.8 Other external cause status
CPT/HCPCS: 69200; 99284; Z7502

== ENCOUNTER 2025-08-28 23:07 | Emergency (ER) | payer OTHER ==
[~2025-08-28] VITALS: Ht 166.4 cm; Wt 68.2 kg
[2025-08-28 23:11] VITALS: TEMP 97.9
[2025-08-29] MEDS ORDERED: SULF1TAB94 PO (00:15)
[2025-08-29] MEDS: SULFAMETHOX/TRIMETH DS 800-160 MG/TABLET PO ONE (00:25)
[2025-08-29 01:01] VITALS: BP 127/71; PULSE 95; RESP 16; O2SAT 96
== END 2025-08-29 01:01 | disposition home or self-care (01) ==
LOC: EMS 23:07
DX: L03.113 Cellulitis of right upper limb (principal); K21.9 Gastro-esophageal reflux disease without esophagitis; G43.909 Migraine, unspecified, not intractable, without status migrainosus; F17.210 Nicotine dependence, cigarettes, uncomplicated; Z98.890 Other specified postprocedural states; Z79.899 Other long term (current) drug therapy; Z98.1 Arthrodesis status
CPT/HCPCS: 99283